=== PATIENT | female | born 1945 ===

== ENCOUNTER 2018-07-19 16:44 | Inpatient (IN) | payer MEDICAID, MEDICARE ==
--- NOTE | 2018-07-19 17:45 | ED PDOC ---
Arrival/HPI - General Chief Complaint: GI Problem Time Seen by Provider: 07/19/18 17:19 Historian: Patient, Family - History of Present Illness Narrative History of Present Illness (Text): 07/19/18 17:44 73 year old female, Vincentian speaking, whose past medical history includes hypertension, asthma, and has a pacemaker, presents to the emergency department complaining of rectal bleeding and fatigue, since yesterday. Patient states when she went to the bathroom for a bowel movement she found blood. Patient denies fevers, chills, headache, dizziness, chest pain, shortness of breath, dyspnea on exertion, cough, abdominal pain, nausea, vomiting, diarrhea, back pain, neck pain, or any other complaint. PMD: Dr. Bennett Prior chart shows hgb 9 with endoscopy and colonoscopy showing non-bleeding ulcer, diverticulosis and hemorrhoids from 2014. 07/19/18 20:39 Time/Duration: 24 hours Symptom Onset: Gradual Symptom Course: Unchanged Activities at Onset: Light Context: Home Past Medical History - Provider Review Nursing Documentation Reviewed: Yes - Cardiac Hx Hypertension: Yes Hx Pacemaker: Yes - Pulmonary Hx Asthma: Yes - Psychiatric Hx Substance Use: No - Surgical History Hx Dilation and Curettage: Yes (x1 ectopic ) - Anesthesia Hx Anesthesia: Yes Hx Anesthesia Reactions: No Hx Malignant Hyperthermia: No Family/Social History - Physician Review Nursing Documentation Reviewed: Yes Family/Social History: No Known Family HX Smoking Status: Never Smoked Hx Alcohol Use: No Hx Substance Use: No Allergies/Home Meds Allergies/Adverse Reactions: Allergies No Known Allergies Allergy (Verified 07/19/18 17:09) Review of Systems - Review of Systems Constitutional: Fatigue. absent: Fevers Eyes: absent: Vision Changes Respiratory: absent: SOB, Cough Cardiovascular: absent: Chest Pain Gastrointestinal: Other (rectal bleeding ). absent: Abdominal Pain, Diarrhea, Nausea, Vomiting Genitourinary Female: absent: Dysuria Musculoskeletal: absent: Back Pain, Neck Pain Skin: absent: Rash Neurological: absent: Headache, Dizziness Psychiatric: absent: Anxiety Physical Exam Vital Signs Reviewed: Yes Vital Signs Temp Pulse Resp BP Pulse Ox 07/19/18 16:44 98.4 F 88 18 126/89 95 Temperature: Afebrile Blood Pressure: Normal Pulse: Regular Respiratory Rate: Normal Appearance: Positive for: Well-Appearing, Non-Toxic, Comfortable Pain Distress: None Mental Status: Positive for: Alert and Oriented X 3 - Systems Exam Head: Present: Atraumatic, Normocephalic Pupils: Present: PERRL Extroacular Muscles: Present: EOMI Conjunctiva: Present: Normal Mouth: Present: Moist Mucous Membranes Neck: Present: Normal Range of Motion Respiratory/Chest: Present: Clear to Auscultation, Good Air Exchange, Other (pacemake noted ). No: Respiratory Distress, Accessory Muscle Use Cardiovascular: Present: Regular Rate and Rhythm, Normal S1, S2. No: Murmurs Abdomen: No: Tenderness, Distention, Peritoneal Signs Rectal: Present: Other (rectal exam done, no stool involved, female scribe present as instructor warper ) Back: Present: Normal Inspection Upper Extremity: Present: Normal Inspection. No: Cyanosis, Edema Lower Extremity: Present: Normal Inspection. No: Edema Neurological: Present: GCS=15, CN II-XII Intact, Speech Normal Skin: Present: Warm, Dry, Normal Color. No: Rashes Psychiatric: Present: Alert, Oriented x 3, Normal Insight, Normal Concentration Medical Decision Making ED Course and Treatment: 07/19/18 17:44 Impression: 73 year old female who presents to the emergency department complaining of rectal bleeding and fatigue. Plan: -- CT of Abdomen and Pelvis with IV contrast -- Labs -- Reassess and disposition Progress Notes: 07/19/18 18:24 EKG shows NSR at 85bpm with pacs. 07/19/18 20:[address] Scott, house physician, who accepts pt under the hospitalist service. 07/19/18 21:10 [facility] anemia and bright red blood per rectum 07/19/18 21:11 Spoke to resident who will follow-up CT read - Lab Interpretations I have reviewed the lab results: Yes - Scribe Statement The provider has reviewed the documentation as recorded by the Lindy Jules Provider Scribe Attestation: All medical record entries made by the Scribellen were at my direction and personally dictated by me. I have reviewed the chart and agree that the record accurately reflects my personal performance of the history, physical exam, medical decision making, and the department course for this patient. I have also personally directed, reviewed, and agree with the discharge instructions and disposition. Disposition/Present on Arrival - Present on Arrival Any Indicators Present on Arrival: No History of DVT/PE: No History of Uncontrolled Diabetes: No Urinary Catheter: No History of Decub. Ulcer: No History Surgical Site Infection Following: None - Disposition Have Diagnosis and Disposition been Completed?: Yes Diagnosis: Anemia Disposition: HOSPITALIZED Disposition Time: 21:10 Patient Plan: Observation Patient Problems: Current Active Problems Problem Status Onset Anemia Acute Condition: FAIR Forms: [employer] ([place])
[2018-07-19 18:15] LABS: BASO # 0.02 K/mm3 (0.0-2.0); BASO % 0.3 % (0.0-3.0); EOS # 0.2 (0.0-0.7); EOS % 3.3 % (1.5-5.0); GRAN # 4.04 (1.4-6.5); GRAN % 70.3 % (50.0-68.0); HEMOGLOBIN 9.4 g/dL (12.0-16.0); LYMPH # 1.2 (1.2-3.4); LYMPH % 20.2 % (22.0-35.0); MEAN CELL VOLUME 100.4 fl (80.0-105.0); MEAN CORPUSCULAR HGB CONC 32.9 g/dl (31.0-37.0); MEAN PLATELET VOLUME 10.3 fl (7.0-11.0); MONO # 0.3 (0.1-0.6); MONO % 5.9 % (1.0-6.0); RBC 2.85 10^6/uL (3.5-6.1); RED CELL DISTRIBUTION WIDTH 13.7 % (11.5-14.5); WHITE BLOOD COUNT 5.8 10^3/uL (4.5-11.0)
[2018-07-19 19:14] LABS: INR 1.04; PARTIAL THROMBOPLASTIN TIME 24.4 Seconds (25.1-36.5); PROTHROMBIN TIME 11.9 SECONDS (9.4-12.5)
[2018-07-19 19:18] LABS: ALBUMIN 3.2 g/dL (3.0-4.8); ALT/SGPT 20 U/L (7-56); AST/SGOT 27 U/L (14-36); BLOOD UREA NITROGEN 16 mg/dL (7-21); CALCIUM 8.8 mg/dL (8.4-10.5); GFR NON-AFRICAN AMERICAN > 60; LIPASE 46 U/L (23-300)
[2018-07-19] MEDS ORDERED: Iohexol 350 MG/100 ML VIAL ONE (19:49)
[2018-07-19] MEDS ORDERED: Sodium Chloride 0.9% 1,000 ML IV STA (20:53)
[2018-07-19] MEDS ORDERED: cefTRIAXone (Rocephin) 2 gm Inj IVPB STA (21:21)
[2018-07-19] MEDS ORDERED: metroNIDAZOLE IV 500 mg/100 ml 500 MG/100 ML BAG IVPB STA (21:21)
[2018-07-19] MEDS ORDERED: cefTRIAXone 1 GM/100 ML BAG IVPB STA (21:25)
[2018-07-19] MEDS ORDERED: Albuterol-Ipratrop 3 mg / 0.5 (3 ml) UD IH PRN (21:46)
--- NOTE | 2018-07-19 21:59 | CP.PCM.HP ---
<Eleazar Mcgill - Last Filed: 07/20/18 05:50> History of Present Illness - History of Present Illness History of Present Illness: Eleazar Mcgill, PGY 1 Hospital H&P This is a 73 year old Israeli speaking female with PMH of HLD, HTN, asthma, pacemaker, CAD, PUD and diverticulosis presenting to the ED for one day history of bright red in stool. Patient states she had a regular bowel movement on Tuesday night and found mild amount of bright red blood in the toilet and had similar findings the next morning as well after another bowel movement. She is also complaining of fatigue over the last few weeks and occasional epigastric pain but no pain at this time. Patient states she received pain medication and antibiotics from her dentist recently for molar pain but is unsure of the name. She denies CP, SOB, fevers, headaches, chills, nausea, vomiting, abdominal pain, back pain, urinary complaints, numbness, tingling, swelling, diarrhea, constipation, recent travel, sickness, trauma and lifestyle change. 12 point ROS noted here, otherwise unremarkable. PMD: [facility] PMH: HLD, HTN, asthma, pacemaker, CAD, PUD and diverticulosis SH: smoked for 6 years many years ago, denies drinking and drugs Sx: pacemkaer placement, ectopic many years ago FH: denies All: denies Meds: albuterol Present on Admission - Present on Admission Any Indicators Present on Admission: No Past Patient History - Past Social History Smoking Status: Former Smoker - CARDIAC Hx Hypertension: Yes Hx Pacemaker: Yes - PULMONARY Hx Asthma: Yes - PSYCHIATRIC Hx Substance Use: No - SURGICAL HISTORY Hx Dilation and Curettage: Yes (x1 ectopic ) - ANESTHESIA Hx Anesthesia: Yes Hx Anesthesia Reactions: No Hx Malignant Hyperthermia: No Meds Allergies/Adverse Reactions: Allergies Allergy/AdvReac Type Severity Reaction Status Date / Time No Known Allergies Allergy Verified 07/19/18 17:09 Physical Exam - Constitutional Appears: Non-toxic, No Acute Distress - Head Exam Head Exam: ATRAUMATIC, NORMAL INSPECTION - Eye Exam Eye Exam: EOMI Pupil Exam: PERRL - ENT Exam ENT Exam: Mucous Membranes Moist - Respiratory Exam Respiratory Exam: Clear to Auscultation Bilateral. absent: Accessory Muscle Use, Wheezes, Respiratory Distress - Cardiovascular Exam Cardiovascular Exam: REGULAR RHYTHM, +S1, +S2 - GI/Abdominal Exam GI & Abdominal Exam: Normal Bowel Sounds, Soft. absent: Distended, Firm, Guarding, Tenderness - Extremities Exam Extremities exam: Positive for: normal inspection, pedal pulses present. Negative for: calf tenderness - Back Exam Back exam: NORMAL INSPECTION - Neurological Exam Neurological exam: Alert, Oriented x3 - Skin Skin Exam: Normal Color, Warm Results - Vital Signs Recent Vital Signs: Last Vital Signs Temp 97.6 F 07/19/18 18:19 Pulse 75 07/19/18 19:31 Resp 18 07/19/18 19:31 BP 106/68 07/19/18 19:31 Pulse Ox 96 07/19/18 19:31 - Labs Result Diagrams: 07/19/18 18:00 07/19/18 18:50 Labs: Laboratory Results - last 24 hr 07/19/18 07/19/18 07/19/18 18:00 18:50 18:50 WBC 5.8 RBC 2.85 L Hgb 9.4 L Hct 28.6 L MCV 100.4 MCH 33.0 MCHC 32.9 RDW 13.7 Plt Count 331 MPV 10.3 Gran % 70.3 H Lymph % (Auto) 20.2 L [place] % (Auto) 5.9 Eos % (Auto) 3.3 Baso % (Auto) 0.3 Gran # 4.04 Lymph # (Auto) 1.2 [place] # (Auto) 0.3 Eos # (Auto) 0.2 Baso # (Auto) 0.02 PT 11.9 INR 1.04 APTT 24.4 L Sodium 143 Potassium 3.7 Chloride 112 H Carbon Dioxide 26 Anion Gap 9 L BUN 16 Creatinine 0.9 Est GFR ( Amer) > 60 Est GFR (Non-Af Amer) > 60 Random Glucose 77 Calcium 8.8 Total Bilirubin 0.5 AST 27 ALT 20 Alkaline Phosphatase 66 Total Protein 6.4 Albumin 3.2 Globulin 3.1 Albumin/Globulin Ratio 1.0 L Lipase 46 Assessment & Plan - Assessment and Plan (Free Text) Assessment: This is a 73 year old Israeli speaking female with PMH of HLD, HTN, asthma, pacemaker, CAD, PUD and diverticulosis presenting to the ED for one day history of bright red in stool. Plan: Diverticulitis -CTAP showed distal descending colon diverticulitis, f/u official read -WBC WNL, afebrile. Patient is currently asymptomatic -NPO -rocephin, flagyl -NS 100 -protonix 40mg IV BID -blood cx pending -Colonoscopy on 11/11/14 showed actively bleeding diverticulosis, internal hemorrhoids -GI on consult, Dr. Cadet Anemia -currently at baseline per chart review, borderline macrocytic -Iron, TIBC, folate, B12 pending -Repeat H/H pending -type and screen -FOBT negative in ED -EGD on 11/11/14 showed small hiatal hernia, 0.5cm x 1cm gastric ulcer Hx of asthma -duonebs prn Hx of HLD -lipid panel pending Hx of HTN -currently controlled -will monitor, per patient she does not take BP meds PPX with protonix and SCD NPO Patient seen and case discussed with attending, Dr. Scott <Benito Scott - Last Filed: 07/21/18 06:57> Results - Vital Signs Recent Vital Signs: Last Vital Signs Temp 97.6 F 07/21/18 06:00 Pulse 81 07/21/18 06:00 Resp 18 07/21/18 06:00 BP 105/51 L 07/21/18 06:00 Pulse Ox 98 07/21/18 06:00 - Labs Result Diagrams: 07/20/18 07:00 07/19/18 23:50 Labs: Laboratory Results - last 24 hr 07/20/18 07/20/18 07/20/18 07:00 07:00 07:00 WBC 4.1 L D RBC 2.58 L Hgb 8.3 L Hct 26.1 L MCV 101.2 MCH 32.2 MCHC 31.8 RDW 13.9 Plt Count 263 MPV 9.5 Gran % 55.6 Lymph % (Auto) 28.6 [place] % (Auto) 10.9 H Eos % (Auto) 4.4 Baso % (Auto) 0.5 Gran # 2.29 Lymph # (Auto) 1.2 [place] # (Auto) 0.5 Eos # (Auto) 0.2 Baso # (Auto) 0.02 Phosphorus 3.0 Magnesium 1.8 Iron 87 TIBC 225 L % Saturation 39 Triglycerides 149 Cholesterol 131 LDL Cholesterol Direct 71 HDL Cholesterol 43 Vitamin B12 791 Folate > 20.0 Blood Type Confirm 07/20/18 07:00 WBC RBC Hgb Hct MCV MCH MCHC RDW Plt Count MPV Gran % Lymph % (Auto) [place] % (Auto) Eos % (Auto) Baso % (Auto) Gran # Lymph # (Auto) [place] # (Auto) Eos # (Auto) Baso # (Auto) Phosphorus Magnesium Iron TIBC % Saturation Triglycerides Cholesterol LDL Cholesterol Direct HDL Cholesterol Vitamin B12 Folate Blood Type Confirm B POSITIVE Attending/Attestation - Attestation I have personally seen and examined this patient.: Yes I have fully participated in the care of the patient.: Yes I have reviewed all pertinent clinical information: Yes
[2018-07-19] MEDS ORDERED: Sodium Chloride 0.9% 1,000 ML IV SCH (22:00)
[2018-07-19] MEDS ORDERED: metroNIDAZOLE IV 500 mg/100 ml 500 MG/100 ML BAG IVPB SCH (22:00)
[2018-07-20 00:16] LABS: HEMOGLOBIN 8.9 g/dL (12.0-16.0)
[2018-07-20 00:33] LABS: ALB/GLOB RATIO 0.9 (1.1-1.8); ALBUMIN 2.6 g/dL (3.0-4.8); ALT/SGPT 26 U/L (7-56); AST/SGOT 26 U/L (14-36); BLOOD UREA NITROGEN 13 mg/dL (7-21); CALCIUM 7.8 mg/dL (8.4-10.5); GFR NON-AFRICAN AMERICAN > 60
[2018-07-20] MEDS ORDERED: metroNIDAZOLE IV 500 mg/100 ml 500 MG/100 ML BAG IVPB SCH (06:00)
[2018-07-20 07:21] LABS: BASO # 0.02 K/mm3 (0.0-2.0); BASO % 0.5 % (0.0-3.0); EOS # 0.2 (0.0-0.7); EOS % 4.4 % (1.5-5.0); GRAN # 2.29 (1.4-6.5); GRAN % 55.6 % (50.0-68.0); HEMOGLOBIN 8.3 g/dL (12.0-16.0); LYMPH # 1.2 (1.2-3.4); LYMPH % 28.6 % (22.0-35.0); MEAN CELL VOLUME 101.2 fl (80.0-105.0); MEAN CORPUSCULAR HEMOGLOBIN 32.2 pg (25.0-35.0); MEAN CORPUSCULAR HGB CONC 31.8 g/dl (31.0-37.0); MEAN PLATELET VOLUME 9.5 fl (7.0-11.0); MONO # 0.5 (0.1-0.6); MONO % 10.9 % (1.0-6.0); RBC 2.58 10^6/uL (3.5-6.1); RED CELL DISTRIBUTION WIDTH 13.9 % (11.5-14.5); WHITE BLOOD COUNT 4.1 10^3/uL (4.5-11.0)
[2018-07-20 07:25] LABS: HDL CHOLESTEROL 43 mg/dL (29-60); IRON 87 ug/dL (45-180)
[2018-07-20 07:34] LABS: % IRON SATURATION 39 % (20-55); TOTAL IRON BINDING CAPACITY 225 ug/dL (265-497)
[2018-07-20 07:36] LABS: LDL CHOLESTEROL 71 mg/dL (0-129)
[2018-07-20] MEDS ORDERED: Sodium Chloride 0.9% 1,000 ML IV SCH (08:47)
--- NOTE | 2018-07-20 09:20 | CON ---
DATE: 07/20/2018 HISTORY OF PRESENT ILLNESS: I saw Mrs. Rafita Anderson this morning. She is a 73-year-old female. PAST MEDICAL HISTORY: Her past medical history includes hypertension, asthma, pacemaker, gastric ulcer, diverticulosis and hemorrhoids. The patient apparently was admitted with complaints of rectal bleeding and fatigue, few separate episodes of 2 days. The patient denies any hematemesis or nausea, vomiting or abdominal pain. Apparently, the patient had an endoscopy and a colonoscopy done in 2014, which showed an ulcer, diverticulosis and hemorrhoids. When asked about straining with bowel movements, the patient could not recall. Numerous questions were inquired of the patient at the bedside with one of the telemetry nurses. PHYSICAL EXAMINATION: VITAL SIGNS: Reviewed to this patient. HEENT: Noncontributory. LUNGS: Decreased breath sounds, basilar. HEART: Irregular rhythm. ABDOMEN: Soft. No tenderness elicited anywhere either in the epigastric, periumbilical or lower quadrant either right or left. LABORATORY DATA: I reviewed this patient's laboratory data which consists of initial H and H , normal INR, comp metabolic significant for hypokalemia, normal biliary parameters, alk phos 61. Note that initial H and H platelet count of 331, decreased slightly probably on delusional aspects. The patient had an abdominal and pelvic CT done which is currently uninterpreted. The CT showed homogeneous liver texture, mildly sequel stomach. There is stool on the proximal colon. Diverticula were noted throughout the area of the descending colon as well as the sigmoid. Further clarification of the CT will be done by Radiology later on this morning. OVERALL ASSESSMENT: This is a 73-year-old female with complaints of painless rectal bleeding. At the current time point, the patient is on ceftriaxone and metronidazole, also PPI. We will continue her on the same. I raised the question with the patient by one of the nurse interpreters of possible colonoscopy procedure and after thoroughly understanding the discussion, the patient preferred to have any procedures performed on an outpatient basis. At the current time point, we would maintain her antibiotic therapy and advance her diet with clear liquids. The patient will be followed up by house staff later on this morning. Vinay Cadet DO, PhD BONNIE
--- NOTE | 2018-07-20 09:31 | CARD ---
APPROVED REPORT Date of service: 07/19/2018 EKG Measurement Heart [id number] <Conclusion> Sinus rhythm with premature atrial complexes Inferior infarct, age undetermined Abnormal ECG
--- NOTE | 2018-07-20 09:44 | CT ---
Date of service: 07/19/2018 PROCEDURE: CT Abdomen and Pelvis with contrast HISTORY: bright red blood per rectum COMPARISON: None. TECHNIQUE: Contrast dose: 100 cc of Omni 350 Radiation dose: Total exam DLP = 268.19 mGy-cm. This CT exam was performed using one or more of the following dose reduction techniques: Automated exposure control, adjustment of the mA and/or kV according to patient size, and/or use of iterative reconstruction technique. FINDINGS: LOWER THORAX: Unremarkable. LIVER: Unremarkable. No gross lesion or ductal dilatation. GALLBLADDER AND BILE DUCTS: Unremarkable. PANCREAS: Unremarkable. No gross lesion or ductal dilatation. SPLEEN: Unremarkable. ADRENALS: Unremarkable. No mass. KIDNEYS AND URETERS: Unremarkable. No hydronephrosis. No solid mass. VASCULATURE: Unremarkable. No aortic aneurysm. Aortic calcifications are seen. BOWEL: There is diverticulosis of the descending and sigmoid colon. Minimal inflammatory changes are seen around the descending colon consistent with mild diverticulitis. There is moderate constipation APPENDIX: Normal appendix. PERITONEUM: There is a small amount of free fluid in the pelvis. LYMPH NODES: Unremarkable. No enlarged lymph nodes. BLADDER: Unremarkable. REPRODUCTIVE: Unremarkable. BONES: No acute fracture. OTHER FINDINGS: The report concurs with the preliminary [facility] report IMPRESSION: There is diverticulosis of the descending and sigmoid colon. Minimal inflammatory changes are seen around the descending colon consistent with mild diverticulitis.
[2018-07-20] MEDS ORDERED: cefTRIAXone 1 gm 1 GM/100 ML BAG IVPB SCH (10:00)
[2018-07-20 13:13] LABS: FOLATE > 20.0 ng/mL
[2018-07-21 06:58] LABS: BLOOD UREA NITROGEN 11 mg/dL (7-21); CALCIUM 7.9 mg/dL (8.4-10.5); GFR NON-AFRICAN AMERICAN > 60
[2018-07-21 07:39] LABS: BASO # 0.02 K/mm3 (0.0-2.0); BASO % 0.4 % (0.0-3.0); EOS # 0.2 (0.0-0.7); EOS % 3.7 % (1.5-5.0); GRAN % 65.9 % (50.0-68.0); HEMOGLOBIN 7.3 g/dL (12.0-16.0); LYMPH # 0.9 (1.2-3.4); LYMPH % 20.6 % (22.0-35.0); MEAN CELL VOLUME 102.7 fl (80.0-105.0); MEAN CORPUSCULAR HEMOGLOBIN 33.2 pg (25.0-35.0); MEAN CORPUSCULAR HGB CONC 32.3 g/dl (31.0-37.0); MEAN PLATELET VOLUME 9.8 fl (7.0-11.0); MONO # 0.4 (0.1-0.6); MONO % 9.4 % (1.0-6.0); RBC 2.2 10^6/uL (3.5-6.1); RED CELL DISTRIBUTION WIDTH 13.9 % (11.5-14.5); WHITE BLOOD COUNT 4.6 10^3/uL (4.5-11.0)
--- NOTE | 2018-07-21 12:20 | PN ---
DATE: 07/21/2018 SUBJECTIVE: I saw Ms. Rafita Anderson this morning. She is a 73-year-old female admitted to the hospital with complaints of few separate episodes of rectal bleeding prior to coming into the hospital. Yesterday, discussed the possibility of endoscopic evaluation; however, the patient deferred to have this done as an outpatient. The patient was initiated on antibiotic therapy yesterday, which included Cipro as well as metronidazole. I reviewed the patient's clinical situation with the nurse on the floor. The patient denies any hematemesis, rectal bleeding, nausea, vomiting, abdominal pain. She appears to be handling her liquid diet without a problem. PHYSICAL EXAMINATION: VITAL SIGNS: I reviewed this patient's vital signs. HEENT: Noncontributory. LUNGS: Decreased breath sounds at bases. HEART: Irregular rhythm. ABDOMEN: Soft. No tenderness elicited, not distended. LABORATORY DATA: Reviewed the patient's ____, which includes a negative blood culture. Laboratory data indicates last H and H as of yesterday morning , that is pending for today. She has a low total iron binding capacity. Iron level is 87. Percent saturation 39. PRBC level is 225. ASSESSMENT AND PLAN: This is a 73-year-old female with complaints of two episodes of rectal bleeding, not currently bleeding in the hospital or experiencing any symptoms of abdominal pain, nausea, or vomiting either. The patient currently is doing well on antibiotic therapy. We will consider advancing diet through either full liquids or possibly very small portions of soft residue and continue the antibiotic therapy for a total of roughly 9 to 10 days. Differential diagnosis in this case includes either hemorrhoid bleeding or rectal mucosal tear or painless diverticular bleed. Again, when the patient is discharged, we will continue the antibiotic therapy in the form of Cipro or Flagyl for roughly about another 10 days and the patient must be followed by an outpatient senior technical support analyst to perform a updated colonoscopy within a short timeframe. Note that as indicated above, the procedure was discussed with the patient, but she deferred. We will sign off the case today. The patient will be followed up by house staff later on this morning. Vinay Cadet DO PhD MTDD
--- NOTE | 2018-07-21 13:18 | CP.PCM.PN ---
<Cora Marsh - Last Filed: 07/21/18 15:16> Subjective - Date & Time of Evaluation Date of Evaluation: 07/21/18 Time of Evaluation: 07:55 - Subjective Subjective: Internal medicine progress note for Dr. Russ Patient seen and examined this am at bedside. Overnight the patient had a single BM with clots. Patient endorses another bloody BM this morning after bloodwork was taken. She does endorse dizziness with standing. She continues to endorse jaw/molar pain but states that he tylenol has helped. Patient denies any JEROME, n/v, f/c, CP, SOB, abdominal pain, dysuria and extremity pain/weakness Objective - Vital Signs/Intake and Output Vital Signs (last 24 hours): Temp Pulse Resp BP Pulse Ox 98.7 F 93 H 19 113/90 98 07/21/18 12:00 07/21/18 12:00 07/21/18 12:00 07/21/18 12:00 07/21/18 06:00 Intake and Output: 07/21/18 07/21/18 06:59 18:59 Intake Total 120 Output Total 350 Balance -230 - Medications Medications: Current Medications Acetaminophen (Tylenol 325mg Tab) 650 mg PO Q6H PRN PRN Reason: Pain, severe (8-10) Albuterol/Ipratropium (Duoneb 3 Mg/0.5 Mg (3 Ml) Ud) 3 ml IH Q2H PRN PRN Reason: Shortness of Breath Last Admin: 07/20/18 18:05 Dose: 3 ml Ciprofloxacin (Cipro) 500 mg PO Q12 FADY; Protocol Stop: 07/21/18 13:20 Last Admin: 07/21/18 10:05 Dose: 500 mg Metronidazole (Flagyl) 500 mg PO Q8 FADY; Protocol Last Admin: 07/21/18 05:29 Dose: 500 mg Pantoprazole Sodium (Protonix Inj) 40 mg IVP Q12 FADY Last Admin: 07/21/18 10:05 Dose: 40 mg - Labs Labs: 07/21/18 06:00 07/21/18 06:00 PT 11.9 SECONDS (9.4-12.5) 07/19/18 18:50 INR 1.04 07/19/18 18:50 APTT 24.4 Seconds (25.1-36.5) L 07/19/18 18:50 - Constitutional Appears: Well, Non-toxic, No Acute Distress - Eye Exam Eye Exam: EOMI - ENT Exam ENT Exam: Mucous Membranes Moist - Respiratory Exam Respiratory Exam: Clear to Ausculation Bilateral, NORMAL BREATHING PATTERN - Cardiovascular Exam Cardiovascular Exam: REGULAR RHYTHM - GI/Abdominal Exam GI & Abdominal Exam: Soft. absent: Distended, Firm, Guarding, Tenderness - Extremities Exam Extremities Exam: absent: Calf Tenderness, Pedal Edema - Neurological Exam Neurological Exam: Alert, Awake, Oriented x3 - Psychiatric Exam Psychiatric exam: Normal Affect, Normal Mood - Skin Skin Exam: Dry, Intact, Normal Color, Warm Assessment and Plan - Assessment and Plan (Free Text) Assessment: 73 yr old female with GI bleed 2/2 diverticulitis Plan: Diverticulitis -c/w PO cipro, flagyl -protonix 40mg IV BID -blood cx neg x 24hrs -Colonoscopy on 11/11/14 showed actively bleeding diverticulosis, internal hemorrhoids -GI on consult, Dr. Cadet, made aware of hgb drop Anemia - continued bloody BM - will transfuse 1 u PRBC today d/t hbg decrease (7.3), consent obtained via hosiery repairer - CBC Q12 - will continue to monitor - transfuse for hgb <7 - B12 folate and Iron WNL, anemia likely 2/2 acute blood loss Hx of asthma -duonebs prn Hx of HLD -lipid panel WNL Hx of HTN - will hold all home BP meds in setting of hypotension/ normotension PPX with protonix and SCD NPO <Fernando Russ - Last Filed: 07/21/18 17:26> Objective - Vital Signs/Intake and Output Vital Signs (last 24 hours): Temp Pulse Resp BP Pulse Ox 98.7 F 93 H 19 113/90 98 07/21/18 12:00 07/21/18 14:00 07/21/18 12:00 07/21/18 12:00 07/21/18 06:00 Intake and Output: 07/21/18 07/21/18 06:59 18:59 Intake Total 120 Output Total 350 Balance -230 - Medications Medications: Current Medications Acetaminophen (Tylenol 325mg Tab) 650 mg PO Q6H PRN PRN Reason: Pain, severe (8-10) Albuterol/Ipratropium (Duoneb 3 Mg/0.5 Mg (3 Ml) Ud) 3 ml IH Q2H PRN PRN Reason: Shortness of Breath Last Admin: 07/20/18 18:05 Dose: 3 ml Atorvastatin Calcium (Lipitor) 20 mg PO DIN FADY Ciprofloxacin (Cipro) 500 mg PO Q12 FADY; Protocol Stop: 07/22/18 15:18 Metronidazole (Flagyl) 500 mg PO Q8 FADY; Protocol Last Admin: 07/21/18 14:59 Dose: 500 mg Oxybutynin Chloride (Ditropan Tab) 5 mg PO DAILY FADY Pantoprazole Sodium (Protonix Inj) 40 mg IVP Q12 FADY Last Admin: 07/21/18 10:05 Dose: 40 mg - Labs Labs: 07/21/18 15:30 07/21/18 06:00 PT 11.9 SECONDS (9.4-12.5) 07/19/18 18:50 INR 1.04 07/19/18 18:50 APTT 24.4 Seconds (25.1-36.5) L 07/19/18 18:50 Attending/Attestation - Attestation I have personally seen and examined this patient.: Yes I have fully participated in the care of the patient.: Yes I have reviewed all pertinent clinical information, including history, physical exam and plan: Yes Notes (Text): Acute blood loss anemia GI bleed Diverticulosis Pt continues to have dark clots in BM. Hgb now down to 7.4. Will transfuse 1u PRBC. Monitor CBC Q12 GI has been informed about the worsening bleeds and drop in Hgb c/w Cipro and flagyl 07/21/18 17:22
[2018-07-21 16:06] LABS: MEAN CELL VOLUME 101.8 fl (80.0-105.0); MEAN CORPUSCULAR HEMOGLOBIN 32.3 pg (25.0-35.0); MEAN CORPUSCULAR HGB CONC 31.7 g/dl (31.0-37.0); MEAN PLATELET VOLUME 9.5 fl (7.0-11.0); RBC 2.17 10^6/uL (3.5-6.1); WHITE BLOOD COUNT 6.1 10^3/uL (4.5-11.0)
[2018-07-21] MEDS ORDERED: Ciprofloxacin 400mg/200ml D5W 400 MG/200 ML BAG IVPB SCH (22:00)
[2018-07-22] MEDS: metroNIDAZOLE IV 500 mg/100 ml 500 MG/100 ML BAG IVPB SCH ×4 (00:13→21:13)
[2018-07-22 01:46] LABS: HEMOGLOBIN 8.2 g/dL (12.0-16.0); MEAN CELL VOLUME 98.5 fl (80.0-105.0); MEAN CORPUSCULAR HEMOGLOBIN 31.1 pg (25.0-35.0); MEAN CORPUSCULAR HGB CONC 31.5 g/dl (31.0-37.0); MEAN PLATELET VOLUME 9.7 fl (7.0-11.0); RBC 2.64 10^6/uL (3.5-6.1); RED CELL DISTRIBUTION WIDTH 16.1 % (11.5-14.5); WHITE BLOOD COUNT 5.9 10^3/uL (4.5-11.0)
[2018-07-22 08:35] LABS: BASO # 0.01 K/mm3 (0.0-2.0); BASO % 0.2 % (0.0-3.0); EOS # 0.2 (0.0-0.7); EOS % 3.7 % (1.5-5.0); GRAN # 3.54 (1.4-6.5); LYMPH # 1.2 (1.2-3.4); LYMPH % 22.8 % (22.0-35.0); MEAN CELL VOLUME 98.1 fl (80.0-105.0); MEAN CORPUSCULAR HGB CONC 31.6 g/dl (31.0-37.0); MEAN PLATELET VOLUME 9.8 fl (7.0-11.0); MONO # 0.5 (0.1-0.6); MONO % 8.3 % (1.0-6.0); RBC 2.58 10^6/uL (3.5-6.1); RED CELL DISTRIBUTION WIDTH 17.2 % (11.5-14.5); WHITE BLOOD COUNT 5.4 10^3/uL (4.5-11.0)
[2018-07-22 09:02] LABS: BLOOD UREA NITROGEN 9 mg/dL (7-21); GFR NON-AFRICAN AMERICAN > 60
[2018-07-22 12:53] LABS: HEMOGLOBIN 7.7 g/dL (12.0-16.0); MEAN CELL VOLUME 97.6 fl (80.0-105.0); MEAN CORPUSCULAR HEMOGLOBIN 31.4 pg (25.0-35.0); MEAN CORPUSCULAR HGB CONC 32.2 g/dl (31.0-37.0); MEAN PLATELET VOLUME 9.1 fl (7.0-11.0); RBC 2.45 10^6/uL (3.5-6.1); RED CELL DISTRIBUTION WIDTH 17.3 % (11.5-14.5); WHITE BLOOD COUNT 6.4 10^3/uL (4.5-11.0)
--- NOTE | 2018-07-22 13:43 | CP.PCM.PN ---
<Scotty Mora - Last Filed: 07/22/18 14:52> Subjective - Date & Time of Evaluation Date of Evaluation: 07/22/18 Time of Evaluation: 10:00 - Subjective Subjective: Scotty Mora PGY-1 Medicine Progress Note for Dr. Tobias Ordoñez: Pt was seen and examined this morning at bedside. Overnight the pt was transfused 1 unit PRBC. H&H this AM was noted to respond appropriately and did not have any reactions during the transfusion. Per nursing she was noted to have a bloody BM this AM as well, will continue to monitor H&H. Pt also states that she is having some dizziness while standing, otherwise she is denying any chest pain, palpitations, sob, cough, nausea, vomiting, abd pain, dysuria, hematuria, or frequency. Objective - Vital Signs/Intake and Output Vital Signs (last 24 hours): Temp Pulse Resp BP Pulse Ox 97.8 F 77 18 111/65 100 07/22/18 06:00 07/22/18 06:00 07/22/18 06:00 07/22/18 06:00 07/22/18 06:00 Intake and Output: 07/22/18 07/22/18 06:59 18:59 Intake Total 1440 Output Total 200 Balance 1240 - Medications Medications: Current Medications Albuterol/Ipratropium (Duoneb 3 Mg/0.5 Mg (3 Ml) Ud) 3 ml IH Q2H PRN PRN Reason: Shortness of Breath Last Admin: 07/20/18 18:05 Dose: 3 ml Metronidazole (Flagyl) 500 mg in 100 mls @ 100 mls/hr IVPB Q8 [facility]ADY; Protocol Last Admin: 07/22/18 06:46 Dose: 100 mls/hr Pantoprazole Sodium (Protonix Inj) 40 mg IVP Q12 [facility]ADY Last Admin: 07/22/18 09:41 Dose: 40 mg - Labs Labs: 07/22/18 12:47 07/22/18 08:15 PT 11.9 SECONDS (9.4-12.5) 07/19/18 18:50 INR 1.04 07/19/18 18:50 APTT 24.4 Seconds (25.1-36.5) L 07/19/18 18:50 - Constitutional Appears: Non-toxic, No Acute Distress - Head Exam Head Exam: ATRAUMATIC, NORMAL INSPECTION, NORMOCEPHALIC - Eye Exam Eye Exam: EOMI, Normal appearance, PERRL - Respiratory Exam Respiratory Exam: Clear to Ausculation Bilateral, NORMAL BREATHING PATTERN. absent: Accessory Muscle Use, Decreased Breath Sounds, Rales, Rhonchi, Wheezes, Respiratory Distress, Stridor - Cardiovascular Exam Cardiovascular Exam: RRR, +S1, +S2. absent: Gallop, Rubs - GI/Abdominal Exam GI & Abdominal Exam: Soft, Normal Bowel Sounds. absent: Guarding, Rigid, Tenderness - Extremities Exam Extremities Exam: absent: Calf Tenderness, Pedal Edema, Tenderness - Back Exam Back Exam: NORMAL INSPECTION. absent: CVA tenderness (L), CVA tenderness (R) - Neurological Exam Neurological Exam: Alert, Awake, Oriented x3 - Psychiatric Exam Psychiatric exam: Normal Affect, Normal Mood - Skin Skin Exam: Dry, Normal Color, Warm Assessment and Plan - Assessment and Plan (Free Text) Assessment: Pt is a 73 year old Wallisian speaking female with PMH of HLD, HTN, asthma, pacemaker, CAD, PUD and diverticulosis presenting to the ED for one day history of bright red in stool. Pt transfused this AM, responded appropriately with morning CBC, but then had bloody BM and dropped again to 7.7. Pt transfused again 1 unit PRBC. Plan: Diverticulitis - c/w IV cipro, PO flagyl - protonix 40mg IV BID - blood cx neg x 48 hrs - Colonoscopy on 11/11/14 showed actively bleeding diverticulosis, internal hemorrhoids - GI on consult, Dr. Cadet, made aware of hgb drop and transfusion Anemia - continued bloody BM - Pt transfused 1 unit PRBC in AMl, f/u CBC showed appropriate response, but repeat CBC showed another drop (7.7), given hx of CAD will transfuse 1 unit PRBC now - CBC Q12 - will continue to monitor - GI made aware of plan to transfuse Hx of asthma -duonebs prn Hx of HLD -lipid panel WNL Hx of HTN - will hold all home BP meds in setting of hypotension/ normotension PPX: GI: protonix DVT: SCD Liquid Diet Case discussed with Dr. Tobias Mora DO Internal Medicine PGY-1 <Daiana Ordoñez R - Last Filed: 07/22/18 16:54> Objective - Vital Signs/Intake and Output Vital Signs (last 24 hours): Temp Pulse Resp BP Pulse Ox 97.4 F L 90 16 101/53 L 100 07/22/18 14:12 07/22/18 14:12 07/22/18 14:12 07/22/18 14:12 07/22/18 06:00 Intake and Output: 07/22/18 07/22/18 06:59 18:59 Intake Total 1440 0 Output Total 200 Balance 1240 0 - Medications Medications: Current Medications Albuterol/Ipratropium (Duoneb 3 Mg/0.5 Mg (3 Ml) Ud) 3 ml IH Q2H PRN PRN Reason: Shortness of Breath Last Admin: 07/20/18 18:05 Dose: 3 ml Atorvastatin Calcium (Lipitor) 20 mg PO DIN [facility] Metronidazole (Flagyl) 500 mg in 100 mls @ 100 mls/hr IVPB Q8 [facility]ADY; Protocol Last Admin: 07/22/18 14:05 Dose: 100 mls/hr Ciprofloxacin (Cipro 200mg/100ml D5w) 100 mls @ 67 mls/hr IVPB Q12 [facility]ADY; Pr otocol Stop: 07/22/18 23:30 Oxybutynin Chloride (Ditropan Tab) 5 mg PO DAILY [facility] Pantoprazole Sodium (Protonix Inj) 40 mg IVP Q12 [facility]ADY Last Admin: 07/22/18 09:41 Dose: 40 mg - Labs Labs: 07/22/18 12:47 07/22/18 08:15 PT 11.9 SECONDS (9.4-12.5) 07/19/18 18:50 INR 1.04 07/19/18 18:50 APTT 24.4 Seconds (25.1-36.5) L 07/19/18 18:50 Attending/Attestation - Attestation I have personally seen and examined this patient.: Yes I have fully participated in the care of the patient.: Yes I have reviewed all pertinent clinical information, including history, physical exam and plan: Yes Notes (Text): Patient seen and examined by me with resident at 8:45 AM on 07/22/18. Case including HPI, physical exam, and assessment and plan discussed with resident. Agree with above with following additions/corrections. Patient is a 73-year-old Wallisian-speaking female with past medical history significant for hyperlipidemia, hypertension, asthma, pacemaker, coronary artery disease, peptic ulcer disease, and diverticulosis of presented to the emergency room with bright red blood per rectum. solar sales consultant used for translation. Patient states she is feeling ok. Patient states she is upset that she is still have bright red blood per rectum. Last bloody bowel movement was this morning. Patient also complains of loss of appetite. No nausea, vomiting, or abdominal pain. Patient states she feels a litte dizzy and short of breath when she walks to the bathroom. No fevers or chills. No headaches or lightheadedness. No chest pain or palpitations. No dysuria. Physical exam: General: Awake and alert lying in bed in no acute distress HEENT: Normocephalic, atraumatic. Extraocular muscles intact, pupils equal and reactive, no scleral icterus. Oropharynx is pink and moist. Neck is supple. Cardiovascular: Regular rhythm. Normal S1 and S2. No murmurs, rubs, or gallops appreciated Pulmonary: Normal respiratory effort. No rhonchi, rales, or wheezing appreciated. Gastrointestinal: Soft, nondistended. Nontender. Positive bowel sounds all 4 quadrants. No guarding. Musculoskeletal: Moves all extremities. No calf tenderness. No edema appreciated Central nervous system: AAOx3 Dermatologic: Skin warm and dry. Assessment and plan: Patient is a 73-year-old Wallisian-speaking female with past medical history significant for hyperlipidemia, hypertension, asthma, pacemaker, coronary artery disease, peptic ulcer disease, and diverticulosis of presented to the emergency room with bright red blood per rectum. 1. Diverticulitis. Rectal bleeding. CT abd/pelvis per radiologist showed diverticulosis of the descending and sigmoid colon; minimal inflammatory changes are seen around the descending colon consistent with mild diverticulitis. Continue Cipro and Flagyl. GI following, recommendations appreciated. Continue clear liquid diet. 2. Anemia secondary to acute blood loss from rectal bleeding. Status post 1 unit packed red blood cells. Hemoglobin downtrending again. Patient being transfused another unit of packed red blood cells. Follow-up with GI for further recommendations. 3. Coronary artery disease. No current issues. Patient chest pain free. Home enalapril held secondary to lower blood pressure likely secondary to bleeding. Continue home Lipitor. 4. Essential hypertension. Home enalapril and hydralazine held for now secondary to lower blood pressure likely secondary to anemia and bleeding. 5. Hyperlipidemia. Continue home Lipitor. 6. History of asthma. Likely mild intermitted. Not in acute exacerbation. Not on home medications. Continue nebulizer treatments as needed. 7. GI prophylaxis. Protonix. 8. DVT prophylaxis. SCDs. 9. Patient is a full code Case was discussed in detail with the patient regarding current diagnosis and treatment plan. All questions answered.
[2018-07-22] MEDS ORDERED: Ciprofloxacin 200mg/100ml D5W 100 ML IVPB SCH (22:00)
[2018-07-23] MEDS: Piperacillin/Tazobact 3.375 gm 100 ML IVPB SCH ×5 (01:08→21:02)
[2018-07-23 01:51] LABS: HEMOGLOBIN 8.6 g/dL (12.0-16.0); MEAN CELL VOLUME 94.6 fl (80.0-105.0); MEAN CORPUSCULAR HEMOGLOBIN 30.8 pg (25.0-35.0); MEAN CORPUSCULAR HGB CONC 32.6 g/dl (31.0-37.0); MEAN PLATELET VOLUME 9.5 fl (7.0-11.0); RBC 2.79 10^6/uL (3.5-6.1); RED CELL DISTRIBUTION WIDTH 18.5 % (11.5-14.5); WHITE BLOOD COUNT 5.7 10^3/uL (4.5-11.0)
[2018-07-23] MEDS: metroNIDAZOLE IV 500 mg/100 ml 500 MG/100 ML BAG IVPB SCH ×5 (04:09→21:02)
[2018-07-23 07:35] LABS: BASO # 0.02 K/mm3 (0.0-2.0); BASO % 0.3 % (0.0-3.0); EOS # 0.3 (0.0-0.7); EOS % 3.8 % (1.5-5.0); GRAN # 4.73 (1.4-6.5); GRAN % 64.7 % (50.0-68.0); HEMOGLOBIN 9.7 g/dL (12.0-16.0); LYMPH # 1.8 (1.2-3.4); LYMPH % 24.4 % (22.0-35.0); MEAN CELL VOLUME 95.3 fl (80.0-105.0); MEAN CORPUSCULAR HEMOGLOBIN 30.2 pg (25.0-35.0); MEAN CORPUSCULAR HGB CONC 31.7 g/dl (31.0-37.0); MEAN PLATELET VOLUME 9.7 fl (7.0-11.0); MONO # 0.5 (0.1-0.6); MONO % 6.8 % (1.0-6.0); RBC 3.21 10^6/uL (3.5-6.1); RED CELL DISTRIBUTION WIDTH 18.6 % (11.5-14.5); WHITE BLOOD COUNT 7.3 10^3/uL (4.5-11.0)
[2018-07-23 08:23] LABS: BLOOD UREA NITROGEN 6 mg/dL (7-21); CALCIUM 8.4 mg/dL (8.4-10.5); GFR NON-AFRICAN AMERICAN > 60
[2018-07-23] MEDS ORDERED: Peg-Electrolyte Oral Soln 4L (Golytely) PO ONE (10:00)
--- NOTE | 2018-07-23 12:16 | PN ---
DATE: 07/23/2018 SUBJECTIVE: I saw Mrs. Rafita Anderson this morning. She is a 73-year-old female, admitted with complaints of painless rectal bleeding and has now had several episodes since admission. The patient was transfused several times with 1 unit. I reviewed the patient's clinical scenario with the house staff on several occasions. H and H as of 1:30 this morning 8.6/26.4 with platelet count of 238. I reviewed the remainder of the patient's labs. At bedside this morning, the patient indicates no shortness of breath or chest pain. No abdominal pain. I reviewed the clinical course with the nurse on telemetry. PHYSICAL EXAMINATION: VITAL SIGNS: I reviewed the patient's vital signs. HEENT: Noncontributory. LUNGS: Decreased breath sounds at bases. HEART: Irregular rhythm. ABDOMEN: Soft. Not distended. No tenderness anywhere, LABORATORY DATA: Again, the laboratory data reviewed above and previously. Note that she has had a CT scan which indicates diverticulosis with no abscess. Sufficient amount of stool. ASSESSMENT: This is a 73-year-old female with painless rectal bleeding. The patient has not had abdominal pain at home or in hospital. PLAN: Due to continued bleeding issues, plan will be for most likely a limited colonoscopy procedure yesterday which is requested at the request of the house staff due of the patient's recurrent bleeding. Most likely, given the current scenario, this could most likely be a diverticular bleed or possibly a tumor in the distal colon. I reviewed the issue of procedure, most likely limited, The patient was agreeable to the procedure. She is currently scheduled for tomorrow at 11:30. The patient will be on a liquid colon prep today with a clear liquid diet. Vinay Cadet DO, PhD BONNIE
--- NOTE | 2018-07-23 13:13 | CP.PCM.PN ---
<Scotty Mora - Last Filed: 07/23/18 14:23> Subjective - Date & Time of Evaluation Date of Evaluation: 07/23/18 Time of Evaluation: 12:48 - Subjective Subjective: Scotty Mora PGY-1 Medicine Progress Note for Dr. Tobias Ordoñez: Pt was seen and examined this AM at bedside. She was transfused a second unit PRBCs in the afternoon yesterday and had responded appropriately. Per pt she had a bloody BM this AM. Colonoscopy was discussed with pt using pleating machine operator ID#[id number], which she had agreed to. GI is on board and has started pt on prep and the pt is on the schedule for scope tomorrow. Pt is currently denying chest pain, SOB, cough, fevers, chills, abd pain, n/v. She states that she is frustrated that her BMs continue to be bloody. She has no other acute complaints at this time. Objective - Vital Signs/Intake and Output Vital Signs (last 24 hours): Temp Pulse Resp BP Pulse Ox 98.3 F 87 18 122/53 L 99 07/23/18 12:00 07/23/18 12:00 07/23/18 12:00 07/23/18 12:00 07/23/18 06:00 Intake and Output: 07/23/18 07/23/18 06:59 18:59 Intake Total 980 Output Total 2 Balance 978 - Medications Medications: Current Medications Albuterol/Ipratropium (Duoneb 3 Mg/0.5 Mg (3 Ml) Ud) 3 ml IH Q2H PRN PRN Reason: Shortness of Breath Last Admin: 07/20/18 18:05 Dose: 3 ml Atorvastatin Calcium (Lipitor) 20 mg PO DIN FADY Last Admin: 07/22/18 18:26 Dose: 20 mg Metronidazole (Flagyl) 500 mg in 100 mls @ 100 mls/hr IVPB Q8 [facility]ADY; Protocol Last Admin: 07/23/18 04:09 Dose: 100 mls/hr Piperacillin Sod/Tazobactam Sod (Zosyn 3.375 In Ns 100ml) 100 mls @ 25 mls/hr IVPB Q8 [facility]ADY; Protocol Stop: 07/31/18 23:57 Last Admin: 07/23/18 05:54 Dose: 25 mls/hr Oxybutynin Chloride (Ditropan Tab) 5 mg PO DAILY [facility] Pantoprazole Sodium (Protonix Inj) 40 mg IVP Q12 FADY Last Admin: 07/23/18 09:53 Dose: 40 mg - Labs Labs: 07/23/18 06:30 07/23/18 06:30 PT 11.9 SECONDS (9.4-12.5) 07/19/18 18:50 INR 1.04 07/19/18 18:50 APTT 24.4 Seconds (25.1-36.5) L 07/19/18 18:50 - Constitutional Appears: Non-toxic, No Acute Distress - Head Exam Head Exam: ATRAUMATIC, NORMAL INSPECTION, NORMOCEPHALIC - Eye Exam Eye Exam: EOMI, Normal appearance, PERRL - Respiratory Exam Respiratory Exam: Clear to Ausculation Bilateral, NORMAL BREATHING PATTERN. absent: Accessory Muscle Use, Decreased Breath Sounds, Rales, Rhonchi, Wheezes, Respiratory Distress, Stridor - Cardiovascular Exam Cardiovascular Exam: RRR, +S1, +S2. absent: Gallop, Rubs - GI/Abdominal Exam GI & Abdominal Exam: Soft, Normal Bowel Sounds. absent: Distended, Firm, Guarding, Rigid, Tenderness - Extremities Exam Extremities Exam: absent: Calf Tenderness, Pedal Edema, Tenderness - Back Exam Back Exam: NORMAL INSPECTION. absent: CVA tenderness (L), CVA tenderness (R) - Neurological Exam Neurological Exam: Alert, Awake, Oriented x3 - Psychiatric Exam Psychiatric exam: Normal Affect, Normal Mood - Skin Skin Exam: Dry, Normal Color, Warm Assessment and Plan - Assessment and Plan (Free Text) Assessment: Pt is a 73 year old Luxembourger speaking female with PMH of HLD, HTN, asthma, pacemaker, CAD, PUD and diverticulosis presenting to the ED for one day history of bright red in stool. Pt transfused 2 units PRBCs yesterday, and has responded approriately to the second unit. Pt reports another bloody BM today. GI spoke with pt in terms of scope and pt is in agreement with plan for scope tomorrow. Plan: 1. Diverticulitis and bleeding diverticuli - c/w IV cipro, PO flagyl - protonix 40mg IV BID - blood cx neg x 48 hrs - Colonoscopy on 11/11/14 showed actively bleeding diverticulosis, internal hemorrhoids - Colonoscopy will be scheduled for Tuesday, pt is in agreement and has started prep. - GI on consult, Dr. Cadet 2. Anemia s/p 2 unit transfusion on 07/22 - continued bloody BM - Pt had 2 units PRBC transfusion yesterday, responded appropriately to 2nd unit - CBC Q12 - will continue to monitor 3. Hx of asthma -duonebs prn 4. Hx of HLD -lipid panel WNL 5. Hx of HTN - will hold all home BP meds in setting of hypotension/ normotension 6. PPX: GI: protonix DVT: SCD Liquid Diet per GI no jello or broth Case discussed with Dr. Tobias Mora DO Internal Medicine PGY-1 <Daiana Ordoñez R - Last Filed: 07/24/18 21:36> Objective - Vital Signs/Intake and Output Vital Signs (last 24 hours): Temp Pulse Resp BP Pulse Ox 98 F 82 20 127/60 95 07/24/18 17:26 07/24/18 18:00 07/24/18 17:26 07/24/18 17:26 07/24/18 12:35 Intake and Output: 07/24/18 07/25/18 18:59 06:59 Intake Total 480 Balance 480 - Labs Labs: 07/24/18 05:30 07/24/18 05:30 PT 11.9 SECONDS (9.4-12.5) 07/19/18 18:50 INR 1.04 07/19/18 18:50 APTT 24.4 Seconds (25.1-36.5) L 07/19/18 18:50 Attending/Attestation - Attestation I have personally seen and examined this patient.: Yes I have fully participated in the care of the patient.: Yes I have reviewed all pertinent clinical information, including history, physical exam and plan: Yes Notes (Text): Patient seen and examined by me with resident at 9AM on 07/23/18. Case including HPI, physical exam, and assessment and plan discussed with resident. Agree with above with following additions/corrections. Patient is a 73-year-old Luxembourger-speaking female with past medical history significant for hyperlipidemia, hypertension, asthma, pacemaker, coronary artery disease, peptic ulcer disease, and diverticulosis of presented to the emergency room with bright red blood per rectum. scalp specialist Yared # [id number] used for translation. Patient states she feels slightly better today. States she is still having bloody bowel movements. Patient states her appetite has also slightly increased. Patient is agreeing to have colonoscopy done. No nausea, vomiting, or abdominal pain. No shortness of breath. No fevers or chills. No headaches or lightheadedness. No chest pain or palpitations. No dysuria. Physical exam: General: Awake and alert lying in bed in no acute distress HEENT: Normocephalic, atraumatic. Extraocular muscles intact, pupils equal and reactive, no scleral icterus. Oropharynx is pink and moist. Neck is supple. Cardiovascular: Regular rhythm. Normal S1 and S2. No murmurs, rubs, or gallops appreciated Pulmonary: Normal respiratory effort. No rhonchi, rales, or wheezing appreciated. Gastrointestinal: Soft, nondistended. Nontender. Positive bowel sounds all 4 quadrants. No guarding. Musculoskeletal: Moves all extremities. No calf tenderness. No edema appreciated Central nervous system: AAOx3 Dermatologic: Skin warm and dry. Assessment and plan: Patient is a 73-year-old Luxembourger-speaking female with past medical history significant for hyperlipidemia, hypertension, asthma, pacemaker, coronary artery disease, peptic ulcer disease, and diverticulosis of presented to the emergency room with bright red blood per rectum. 1. Diverticulitis. Rectal bleeding. S/P 2 units PRBCs. Patient for limited colonoscopy tomorrow. GI following, recommendations appreciated. Continue clear liquid diet. NPO after midnight. CT abd/pelvis per radiologist showed diverticulosis of the descending and sigmoid colon; minimal inflammatory changes are seen around the descending colon consistent with mild diverticulitis. Patient swtiched from [facility] to [facility] by ID. 2. Anemia secondary to acute blood loss from rectal bleeding. Status post2 units PRBCs with improvement. Continue to monitor CBC. 3. Coronary artery disease. No current issues. No chest pain. Home enalapril held secondary to lower blood pressure likely secondary to bleeding. Continue home Lipitor. 4. Essential hypertension. Home enalapril and hydralazine held for now secondary to lower blood pressure likely secondary to anemia and bleeding. 5. Hyperlipidemia. Continue home Lipitor. 6. History of asthma. Likely mild intermittent. Not in acute exacerbation. Not on home medications. Continue nebulizer treatments as needed. 7. GI prophylaxis. Protonix. 8. DVT prophylaxis. SCDs. 9. Patient is a full code Case was discussed in detail with the patient regarding current diagnosis and treatment plan. All questions answered.
--- NOTE | 2018-07-23 14:36 | CON ---
DATE OF CONSULTATION: 07/23/2018 The patient is seen in Room 260, Bed 2. CHIEF COMPLAINT: Rectal bleeding x1 day duration. HISTORY OF PRESENT ILLNESS: This is a 73-year-old female, who speaks Vietnamese, who states that she has a history of hypertension, asthma, has a pacemaker and presents to the emergency room having rectal bleeding. The patient had some discomfort in bowel movements and she found blood in her stool. She denies any fevers, any chills, any nausea, vomiting, chest pain. PAST MEDICAL HISTORY: Significant for hypertension, asthma, ectopic and diverticulosis. PAST SURGICAL HISTORY: Significant for D and C for an ectopic . Also has a pacemaker. MEDICATIONS AT HOME: Enalapril, Lipitor, hydralazine, Lasix, metronidazole and Cipro. ALLERGIES: THE PATIENT HAS NO KNOWN ALLERGIES. REVIEW OF SYSTEMS: A 14-point review of systems is reviewed. The patient also had upper endoscopy and colonoscopy, which showed nonbleeding ulcers in the past. The patient also has a history of diverticulosis. PHYSICAL EXAMINATION: GENERAL: The patient is in bed in no acute distress. VITAL SIGNS: Temperature of 98, heart rate of 96, blood pressure is 112/70, respiratory rate of 21. HEENT: Unremarkable. NECK: Supple. LUNGS: Decreased breath sounds. HEART: Normal S1, S2. ABDOMEN: Soft, nontender. Mild tenderness in the left lower quadrant, but no rebound or guarding. No masses. LABORATORY EXAMINATION: White count of 7.3, hemoglobin of 9. Coagulation is noted. Chemistries reveal a BUN of 6, creatinine of 0.8. The patient had a CT scan of the abdomen, which revealed possible mild diverticulitis. ASSESSMENT AND PLAN: This is a 73-year-old female with hypertension, asthma, history of ectopic , who has a pacemaker, whose blood cultures are negative, who was admitted with rectal bleeding, tachycardia, dyspnea, and positive CT scan of the abdomen. #1 is sepsis with mild diverticulitis. The patient was on Cipro and Flagyl as outpatient. We would treat with Zosyn and check on a final blood culture result. We will follow closely with you. Barrington Hartmann MD
[2018-07-24] MEDS: Piperacillin/Tazobact 3.375 gm 100 ML IVPB SCH (05:05)
[2018-07-24] MEDS: metroNIDAZOLE IV 500 mg/100 ml 500 MG/100 ML BAG IVPB SCH ×2 (05:05→16:35)
[2018-07-24 05:48] LABS: BASO # 0.03 K/mm3 (0.0-2.0); BASO % 0.5 % (0.0-3.0); EOS # 0.3 (0.0-0.7); EOS % 4.9 % (1.5-5.0); GRAN # 3.54 (1.4-6.5); HEMOGLOBIN 8.4 g/dL (12.0-16.0); LYMPH # 1.3 (1.2-3.4); LYMPH % 22.8 % (22.0-35.0); MEAN CELL VOLUME 95.5 fl (80.0-105.0); MEAN CORPUSCULAR HEMOGLOBIN 31.3 pg (25.0-35.0); MEAN CORPUSCULAR HGB CONC 32.8 g/dl (31.0-37.0); MEAN PLATELET VOLUME 9.1 fl (7.0-11.0); MONO # 0.4 (0.1-0.6); MONO % 7.8 % (1.0-6.0); RBC 2.68 10^6/uL (3.5-6.1); RED CELL DISTRIBUTION WIDTH 17.8 % (11.5-14.5); WHITE BLOOD COUNT 5.5 10^3/uL (4.5-11.0)
[2018-07-24 06:09] LABS: BLOOD UREA NITROGEN 6 mg/dL (7-21); GFR NON-AFRICAN AMERICAN > 60
[2018-07-24] MEDS ORDERED: Potassium Chloride 40 mEq/30 ml LIQ UD PO STA (08:49)
--- NOTE | 2018-07-24 10:43 | CP.PCM.PN ---
Subjective - Date & Time of Evaluation Date of Evaluation: 07/23/18 Time of Evaluation: 08:00 - Subjective Subjective: Abdominal pain is a little better, no fevers. For colonoscopy today. Objective - Vital Signs/Intake and Output Vital Signs (last 24 hours): Temp Pulse Resp BP Pulse Ox 98.6 F 105 H 18 131/76 97 07/23/18 18:00 07/23/18 18:00 07/23/18 18:00 07/23/18 18:00 07/23/18 18:00 Intake and Output: 07/23/18 07/24/18 18:59 06:59 Intake Total 1140 Balance 1140 - Medications Medications: Current Medications Albuterol/Ipratropium (Duoneb 3 Mg/0.5 Mg (3 Ml) Ud) 3 ml IH Q2H PRN PRN Reason: Shortness of Breath Last Admin: 07/20/18 18:05 Dose: 3 ml Atorvastatin Calcium (Lipitor) 20 mg PO DIN [facility] Last Admin: 07/23/18 17:18 Dose: 20 mg Metronidazole (Flagyl) 500 mg in 100 mls @ 100 mls/hr IVPB Q8 [facility]ADY; Protocol Last Admin: 07/23/18 19:50 Dose: 100 mls/hr Piperacillin Sod/Tazobactam Sod (Zosyn 3.375 In Ns 100ml) 100 mls @ 25 mls/hr IVPB Q8 FADY; Protocol Stop: 07/31/18 23:57 Last Admin: 07/23/18 19:50 Dose: Not Given Oxybutynin Chloride (Ditropan Tab) 5 mg PO DAILY [facility] Last Admin: 07/23/18 09:44 Dose: 5 mg Pantoprazole Sodium (Protonix Inj) 40 mg IVP Q12 [facility]ADY Last Admin: 07/23/18 09:53 Dose: 40 mg - Labs Labs: 07/23/18 06:30 07/23/18 06:30 PT 11.9 SECONDS (9.4-12.5) 07/19/18 18:50 INR 1.04 07/19/18 18:50 APTT 24.4 Seconds (25.1-36.5) L 07/19/18 18:50 - Constitutional Appears: Chronically Ill - Head Exam Head Exam: NORMAL INSPECTION - Neck Exam Neck Exam: absent: Meningismus - Respiratory Exam Respiratory Exam: Decreased Breath Sounds - Cardiovascular Exam Cardiovascular Exam: +S1, +S2 - GI/Abdominal Exam GI & Abdominal Exam: Soft. absent: Tenderness Assessment and Plan - Assessment and Plan (Free Text) Plan: Assessment Sepsis due to acute diverticulitis HTN asthma history of ectopic S/P pacemaker placement Plan continue Zosyn day 2 and will follow up final blood cx results will monitor clinically follow up colonoscopy results
--- NOTE | 2018-07-24 10:53 | RAD ---
Date of service: 07/24/2018 HISTORY: clearance COMPARISON: No prior. FINDINGS: LUNGS: Small left lung base opacity likely atelectasis. Mild hyperinflation of the lungs noted. PLEURA: No significant pleural effusion identified, no pneumothorax apparent. CARDIOVASCULAR: No aortic atherosclerotic calcification present. Normal cardiac size. No pulmonary vascular congestion. OSSEOUS STRUCTURES: No significant abnormalities. VISUALIZED UPPER ABDOMEN: Normal. OTHER FINDINGS: Single wire left-sided pacemaker or AICD is seen in place. IMPRESSION: Small opacity at the left lung base likely atelectasis.
[2018-07-24] MEDS ORDERED: Lidocaine 1% Inj (20ml) ONE (11:28)
[2018-07-24] MEDS ORDERED: Propofol 10 mg/ml Inj (20 ML) ONE (11:28)
[2018-07-24] MEDS ORDERED: Sodium Chloride 0.9% 1,000 ML IV SCH (12:15)
--- NOTE | 2018-07-24 12:16 | PN ---
DATE: 07/24/2018 SUBJECTIVE: I saw Mrs. Rafita Anderson this morning. She is a 73-year-old female, admitted with complaints of painless rectal bleeding. She was found to have possibly mild diverticulosis involving the distal descending colon and sigmoid. I reviewed the issue of brief colonoscopic evaluation of the colon to delineate the source of bleeding in this patient which has been occurring over the past couple of days. The patient is scheduled for colonoscopy later on today. I reviewed the issue of the colon prep with the nurse on the floor this morning and they indicated that the patient finished colon prep roughly around midnight with no evidence of bleeding. The patient also has no abdominal pain. PHYSICAL EXAMINATION: VITAL SIGNS: I reviewed the patient's vital signs. HEENT: Noncontributory. LUNGS: Decreased breath sounds at bases. HEART: Irregular rhythm. ABDOMEN: Soft. No tenderness elicited, LABORATORY DATA: Last laboratory data at 5:30 this morning, H and H of 8.4 and 25.6. I reviewed the consultations from respective physicians including the house staff, Dr. Stevenson, Dr. Ordoñez, Dr. Hartmann. ASSESSMENT: This is a 73-year-old female with painless rectal bleeding, had no bleeding from the colon last night during a colon prep. The patient is currently on Zosyn as per Dr. Hartmann. The procedure is pending for this morning. Most likely, this will be a limited study due to the possibility of diverticulitis. Vinay Cadet DO, PhD BONNIE
[2018-07-24 12:41] VITALS: O2SAT 95
--- NOTE | 2018-07-24 14:53 | CP.PCM.PN ---
<Sarah Marshah - Last Filed: 07/24/18 14:54> Subjective - Date & Time of Evaluation Date of Evaluation: 07/24/18 Time of Evaluation: 07:30 - Subjective Subjective: Internal Medicine Progress note Dr. Baldwin Patient seen and examined this am at bedside. NAEO per nursing. Patient is resting comfortably and denies any JEROME, CP, SOB, abdominal pain, n/v, f/c and extremity pain or weakness. Objective - Vital Signs/Intake and Output Vital Signs (last 24 hours): Temp Pulse Resp BP Pulse Ox 98 F 88 12 125/49 L 95 07/24/18 12:35 07/24/18 12:35 07/24/18 12:35 07/24/18 12:35 07/24/18 12:35 Intake and Output: 07/24/18 07/24/18 06:59 18:59 Intake Total 1540 Balance 1540 - Medications Medications: Current Medications Albuterol/Ipratropium (Duoneb 3 Mg/0.5 Mg (3 Ml) Ud) 3 ml IH Q2H PRN PRN Reason: Shortness of Breath Last Admin: 07/20/18 18:05 Dose: 3 ml Atorvastatin Calcium (Lipitor) 20 mg PO DIN FADY Last Admin: 07/23/18 17:18 Dose: 20 mg Metronidazole (Flagyl) 500 mg in 100 mls @ 100 mls/hr IVPB Q8 FADY; Protocol Last Admin: 07/24/18 05:05 Dose: 100 mls/hr Piperacillin Sod/Tazobactam Sod (Zosyn 3.375 In Ns 100ml) 100 mls @ 25 mls/hr I VPB Q8 FADY; Protocol Stop: 07/31/18 23:57 Last Admin: 07/24/18 05:05 Dose: 25 mls/hr Sodium Chloride (Sodium Chloride 0.9%) 1,000 mls @ 100 mls/hr IV .Q10H FADY Oxybutynin Chloride (Ditropan Tab) 5 mg PO DAILY [facility] Last Admin: 07/23/18 09:44 Dose: 5 mg Pantoprazole Sodium (Protonix Inj) 40 mg IVP Q12 FADY Last Admin: 07/23/18 21:03 Dose: 40 mg - Labs Labs: 07/24/18 05:30 07/24/18 05:30 PT 11.9 SECONDS (9.4-12.5) 07/19/18 18:50 INR 1.04 07/19/18 18:50 APTT 24.4 Seconds (25.1-36.5) L 07/19/18 18:50 - Constitutional Appears: Well, Non-toxic, No Acute Distress - Head Exam Head Exam: ATRAUMATIC, NORMOCEPHALIC - Eye Exam Eye Exam: EOMI - ENT Exam ENT Exam: Mucous Membranes Moist - Respiratory Exam Respiratory Exam: NORMAL BREATHING PATTERN - Cardiovascular Exam Cardiovascular Exam: REGULAR RHYTHM - GI/Abdominal Exam GI & Abdominal Exam: Soft. absent: Distended, Guarding, Tenderness - Extremities Exam Extremities Exam: absent: Calf Tenderness, Pedal Edema - Neurological Exam Neurological Exam: Alert, Awake, Oriented x3 - Psychiatric Exam Psychiatric exam: Normal Affect, Normal Mood - Skin Skin Exam: Dry, Intact, Normal Color, Warm Assessment and Plan - Assessment and Plan (Free Text) Assessment: 73 yr old female with diverticulitis and diverticular GI bleed Plan: 1. Diverticulitis and bleeding diverticuli - c/w IV cipro, PO flagyl - protonix 40mg IV BID - blood cx neg x 72 hrs - Colonoscopy today - GI on consult, Dr. Cadet 2. Anemia s/p 2 unit transfusion on 07/22 - continued bloody BM - hgb 8.4 - CBC Q12 - will continue to monitor 3. Hx of asthma -duonebs prn 4. Hx of HLD -lipid panel WNL 5. Hx of HTN - will hold all home BP meds in setting of hypotension/ normotension 6. PPX: GI: protonix DVT: SCD <Genaro Baldwin - Last Filed: 07/25/18 14:33> Objective - Vital Signs/Intake and Output Vital Signs (last 24 hours): Temp Pulse Resp BP Pulse Ox 98 F 82 20 127/60 95 07/24/18 17:26 07/24/18 18:00 07/24/18 17:26 07/24/18 17:26 07/24/18 12:35 - Labs Labs: 07/24/18 05:30 07/24/18 05:30 PT 11.9 SECONDS (9.4-12.5) 07/19/18 18:50 INR 1.04 07/19/18 18:50 APTT 24.4 Seconds (25.1-36.5) L 07/19/18 18:50 Attending/Attestation - Attestation I have personally seen and examined this patient.: Yes I have fully participated in the care of the patient.: Yes I have reviewed all pertinent clinical information, including history, physical exam and plan: Yes Notes (Text): 07/25/18 14:30 Attending note; Patient seen and examined with resident. Patient is a 73-year-old Slovak-speaking female with past medical history significant for hyperlipidemia, hypertension, asthma, pacemaker, coronary artery disease, peptic ulcer disease, and diverticulosis of presented to the emergency room with bright red blood per rectum. 1. Diverticulitis. Rectal bleeding. S/P 2 units PRBC transfusion. Currently no active bleeding. Going for colonoscopy today. Will follow up with GI. CT abd/pelvis showed diverticulosis of the descending and sigmoid colon; minimal inflammatory changes are seen around the descending colon consistent with mild diverticulitis. Patient [facility] to [facility] [place]. 2. Anemia secondary to acute blood loss from rectal bleeding. Status post2 units PRBCs with improvement. 3. Coronary artery disease. No current issues. No chest pain. 4. GI prophylaxis. Protonix. 5. DVT prophylaxis. SCDs. Upon discharge the patient will follow up with PMD DR. Bennett. Case was discussed in detail with the patient regarding current diagnosis and treatment plan. 07/25/18 14:32
[2018-07-24 17:27] VITALS: BP 127/60; RESP 20; TEMP 98
[2018-07-24 18:52] VITALS: PULSE 82
--- NOTE | 2018-07-25 07:59 | CP.PCM.DIS ---
<Cora Marsh - Last Filed: 07/25/18 08:04> Provider - Provider Date of Admission: 07/21/18 13:07 Attending physician: Genaro Baldwin MD Consults: 07/19/18 21:46 Gastroenterology Consult Stat Comment: Consulting Provider: Vinay Cadet Consulting Physician: Vinay Cadet Reason for Consult: anemia, hx of GI bleed 07/22/18 14:33 Infectious Disease Consult Routine Comment: Consulting Provider: Gabe Rosario Consulting Physician: Gabe Rosario Reason for Consult: Abx management Time Spent in preparation of Discharge (in minutes): 45 Hospital Course - Lab Results Lab Results: Micro Results 07/19/18 21:45 Blood Blood Culture - Final NO GROWTH AFTER 5 DAYS 07/19/18 21:45 Blood Gram Stain - Final TEST NOT PERFORMED 07/19/18 21:15 Blood Blood Culture - Final NO GROWTH AFTER 5 DAYS 07/19/18 21:15 Blood Gram Stain - Final TEST NOT PERFORMED Most Recent Lab Values WBC 5.5 10^3/uL (4.5-11.0) D 07/24/18 05:30 RBC 2.68 10^6/uL (3.5-6.1) L 07/24/18 05:30 Hgb 8.4 g/dL (12.0-16.0) L 07/24/18 05:30 Hct 25.6 % (36.0-48.0) L 07/24/18 05:30 MCV 95.5 fl (80.0-105.0) 07/24/18 05:30 MCH 31.3 pg (25.0-35.0) 07/24/18 05:30 MCHC 32.8 g/dl (31.0-37.0) 07/24/18 05:30 RDW 17.8 % (11.5-14.5) H 07/24/18 05:30 Plt Count 276 10^3/uL (120.0-450.0) 07/24/18 05:30 MPV 9.1 fl (7.0-11.0) 07/24/18 05:30 Gran % 64.0 % (50.0-68.0) 07/24/18 05:30 Lymph % (Auto) 22.8 % (22.0-35.0) 07/24/18 05:30 A[place]ac % (Auto) 7.8 % (1.0-6.0) H 07/24/18 05:30 Eos % (Auto) 4.9 % (1.5-5.0) 07/24/18 05:30 Baso % (Auto) 0.5 % (0.0-3.0) 07/24/18 05:30 Gran # 3.54 (1.4-6.5) 07/24/18 05:30 Lymph # (Auto) 1.3 (1.2-3.4) 07/24/18 05:30 [place] # (Auto) 0.4 (0.1-0.6) 07/24/18 05:30 Eos # (Auto) 0.3 (0.0-0.7) 07/24/18 05:30 Baso # (Auto) 0.03 K/mm3 (0.0-2.0) 07/24/18 05:30 PT 11.9 SECONDS (9.4-12.5) 07/19/18 18:50 INR 1.04 07/19/18 18:50 APTT 24.4 Seconds (25.1-36.5) L 07/19/18 18:50 Sodium 140 mmol/L (132-148) 07/24/18 05:30 Potassium 3.5 mmol/L (3.6-5.0) L 07/24/18 05:30 Chloride 109 mmol/L (98-107) H 07/24/18 05:30 Carbon Dioxide 30 mmol/L (21-33) 07/24/18 05:30 Anion Gap 4 (10-20) L 07/24/18 05:30 BUN 6 mg/dL (7-21) L 07/24/18 05:30 Creatinine 0.9 mg/dl (0.7-1.2) 07/24/18 05:30 Est GFR ( Amer) > 60 07/24/18 05:30 Est GFR (Non-Af Amer) > 60 07/24/18 05:30 Random Glucose 74 mg/dL (70-110) 07/24/18 05:30 Calcium 8.0 mg/dL (8.4-10.5) L 07/24/18 05:30 Phosphorus 3.0 mg/dL (2.5-4.5) 07/20/18 07:00 Magnesium 1.9 mg/dL (1.7-2.2) 07/23/18 06:30 Iron 87 ug/dL (45-180) 07/20/18 07:00 TIBC 225 ug/dL (265-497) L 07/20/18 07:00 % Saturation 39 % (20-55) 07/20/18 07:00 Total Bilirubin 0.3 mg/dL (0.2-1.3) 07/19/18 23:50 AST 26 U/L (14-36) 07/19/18 23:50 ALT 26 U/L (7-56) 07/19/18 23:50 Alkaline Phosphatase 61 U/L (38-126) 07/19/18 23:50 Total Protein 5.4 g/dL (5.8-8.3) L 07/19/18 23:50 Albumin 2.4 g/dL (3.0-4.8) L 07/21/18 08:30 Globulin 2.8 gm/dL 07/19/18 23:50 Albumin/Globulin Ratio 0.9 (1.1-1.8) L 07/19/18 23:50 Triglycerides 149 mg/dL (35-160) 07/20/18 07:00 Cholesterol 131 mg/dL (130-200) 07/20/18 07:00 LDL Cholesterol Direct 71 mg/dL (0-129) 07/20/18 07:00 HDL Cholesterol 43 mg/dL (29-60) 07/20/18 07:00 Lipase 46 U/L (23-300) 07/19/18 18:50 Vitamin B12 791 pg/mL (239-931) 07/20/18 07:00 Folate > 20.0 ng/mL 07/20/18 07:00 Blood Type B POSITIVE 07/21/18 15:30 Blood Type Confirm B POSITIVE 07/20/18 07:00 Antibody Screen Negative 07/21/18 15:30 Crossmatch See Detail 07/21/18 15:30 BBK History Checked Patient has bt 07/21/18 15:30 - Hospital Course Hospital Course: Upon admission: This is a 73 year old Afghan speaking female with PMH of HLD, HTN, asthma, pacemaker, CAD, PUD and diverticulosis presenting to the ED for one day history of bright red in stool. Patient states she had a regular bowel movement on Tuesday night and found mild amount of bright red blood in the toilet and had similar findings the next morning as well after another bowel movement. She is also complaining of fatigue over the last few weeks and occasional epigastric pain but no pain at this time. Patient states she received pain medication and antibiotics from her dentist recently for molar pain but is unsure of the name. She denies CP, SOB, fevers, headaches, chills, nausea, vomiting, abdominal pain, back pain, urinary complaints, numbness, tingling, swelling, diarrhea, constipation, recent travel, sickness, trauma and lifestyle change. 12 point ROS noted here, otherwise unremarkable. Patient was subsequently diagnosed with diverticulitis confirmed on CT scan. GI was consulted for management of her GI bleeding. During her hospital stay patient continued to have bloody BM and required 2 units of PRBC transfused. She denied abdominal pain, f/c, n/v, CP, SOB and extremity pain/weakness throughout her stay. Infectious Disease was consulted to manage antibiotic coverage of her diverticulitis. Patient was placed on Cipro and flagyl. On hospital Day 5 patient underwent colonoscopy which revealed diverticula in the colon but no active bleeding. The patient did not have any further bloody BM and tolerated a soft diet that evening for dinner. She was subsequently deemed stable for Discharge by Dr. Baldwin and was discharged from the hospital. Prior to discharge patient was given prescription medications (Ciprofloxacin, flagyl, protonix) which were filled here at [facility] pharmacy and were delivered to her room. PAtient was instructed to follow up with her primary car doctor within 3-5 days and to return to the nearest ED if her symptoms returned. - Date & Time of H&P Date of H&P: 07/24/18 Time of H&P: 07:15 Discharge Exam - Head Exam Head Exam: ATRAUMATIC, NORMOCEPHALIC - Eye Exam Eye Exam: EOMI - ENT Exam ENT Exam: Mucous Membranes Moist - Respiratory Exam Respiratory Exam: NORMAL BREATHING PATTERN - Cardiovascular Exam Cardiovascular Exam: REGULAR RHYTHM - GI/Abdominal Exam GI & Abdominal Exam: Soft. absent: Distended, Guarding, Tenderness - Extremities Exam Extremities exam: normal capillary refill, pedal pulses present - Neurological Exam Neurological exam: Alert, Oriented x3 - Psychiatric Exam Psychiatric exam: Normal Affect, Normal Mood - Skin Skin Exam: Dry, Intact, Normal Color, Warm Discharge Plan - Discharge Medications Prescriptions: Pantoprazole [Protonix] 40 mg PO DAILY #30 ect - Follow Up Plan Condition: FAIR Disposition: HOME/ ROUTINE Instructions: Ciprofloxacin (Systemic), Metronidazole (Systemic), Bloody Stools, Adult (DC) Additional Instructions: Please follow up with your primary care doctor, Dr. Bennett, in 3-5 days. Please follow up with the emissions testing and repair technician, Dr. Cadet, within one week of being discharged from the hospital. Please complete course of antibiotics: - Ciprofloxacin 500mg TWICE per day for 5 more days - Metronidazole 500mg THREE times per day for 5 more days. You have been prescribed a new medication that will help to reduce acid in your stomach called Protonix. You will need to take this once daily. Please continue home medications as prescribed. If your symptoms return, please go to the nearest emergency department. Referrals: Vinay Cadet DO [Staff Provider] - <Genaro Baldwin - Last Filed: 07/25/18 14:34> Provider - Provider Date of Admission: 07/21/18 13:07 Attending physician: Genaro Baldwin MD Consults: 07/19/18 21:46 Gastroenterology Consult Stat Comment: Consulting Provider: Vinay Cadet Consulting Physician: Vinay Cadet Reason for Consult: anemia, hx of GI bleed 07/22/18 14:33 Infectious Disease Consult Routine Comment: Consulting Provider: Gabe Rosario Consulting Physician: Gabe Rosario Reason for Consult: Abx management Hospital Course - Lab Results Lab Results: Micro Results 07/19/18 21:45 Blood Blood Culture - Final NO GROWTH AFTER 5 DAYS 07/19/18 21:45 Blood Gram Stain - Final TEST NOT PERFORMED 07/19/18 21:15 Blood Blood Culture - Final NO GROWTH AFTER 5 DAYS 07/19/18 21:15 Blood Gram Stain - Final TEST NOT PERFORMED Most Recent Lab Values WBC 5.5 10^3/uL (4.5-11.0) D 07/24/18 05:30 RBC 2.68 10^6/uL (3.5-6.1) L 07/24/18 05:30 Hgb 8.4 g/dL (12.0-16.0) L 07/24/18 05:30 Hct 25.6 % (36.0-48.0) L 07/24/18 05:30 MCV 95.5 fl (80.0-105.0) 07/24/18 05:30 MCH 31.3 pg (25.0-35.0) 07/24/18 05:30 MCHC 32.8 g/dl (31.0-37.0) 07/24/18 05:30 RDW 17.8 % (11.5-14.5) H 07/24/18 05:30 Plt Count 276 10^3/uL (120.0-450.0) 07/24/18 05:30 MPV 9.1 fl (7.0-11.0) 07/24/18 05:30 Gran % 64.0 % (50.0-68.0) 07/24/18 05:30 Lymph % (Auto) 22.8 % (22.0-35.0) 07/24/18 05:30 A[place]ac % (Auto) 7.8 % (1.0-6.0) H 07/24/18 05:30 Eos % (Auto) 4.9 % (1.5-5.0) 07/24/18 05:30 Baso % (Auto) 0.5 % (0.0-3.0) 07/24/18 05:30 Gran # 3.54 (1.4-6.5) 07/24/18 05:30 Lymph # (Auto) 1.3 (1.2-3.4) 07/24/18 05:30 [place]ac # (Auto) 0.4 (0.1-0.6) 07/24/18 05:30 Eos # (Auto) 0.3 (0.0-0.7) 07/24/18 05:30 Baso # (Auto) 0.03 K/mm3 (0.0-2.0) 07/24/18 05:30 PT 11.9 SECONDS (9.4-12.5) 07/19/18 18:50 INR 1.04 07/19/18 18:50 APTT 24.4 Seconds (25.1-36.5) L 07/19/18 18:50 Sodium 140 mmol/L (132-148) 07/24/18 05:30 Potassium 3.5 mmol/L (3.6-5.0) L 07/24/18 05:30 Chloride 109 mmol/L (98-107) H 07/24/18 05:30 Carbon Dioxide 30 mmol/L (21-33) 07/24/18 05:30 Anion Gap 4 (10-20) L 07/24/18 05:30 BUN 6 mg/dL (7-21) L 07/24/18 05:30 Creatinine 0.9 mg/dl (0.7-1.2) 07/24/18 05:30 Est GFR ( Amer) > 60 07/24/18 05:30 Est GFR (Non-Af Amer) > 60 07/24/18 05:30 Random Glucose 74 mg/dL (70-110) 07/24/18 05:30 Calcium 8.0 mg/dL (8.4-10.5) L 07/24/18 05:30 Phosphorus 3.0 mg/dL (2.5-4.5) 07/20/18 07:00 Magnesium 1.9 mg/dL (1.7-2.2) 07/23/18 06:30 Iron 87 ug/dL (45-180) 07/20/18 07:00 TIBC 225 ug/dL (265-497) L 07/20/18 07:00 % Saturation 39 % (20-55) 07/20/18 07:00 Total Bilirubin 0.3 mg/dL (0.2-1.3) 07/19/18 23:50 AST 26 U/L (14-36) 07/19/18 23:50 ALT 26 U/L (7-56) 07/19/18 23:50 Alkaline Phosphatase 61 U/L (38-126) 07/19/18 23:50 Total Protein 5.4 g/dL (5.8-8.3) L 07/19/18 23:50 Albumin 2.4 g/dL (3.0-4.8) L 07/21/18 08:30 Globulin 2.8 gm/dL 07/19/18 23:50 Albumin/Globulin Ratio 0.9 (1.1-1.8) L 07/19/18 23:50 Triglycerides 149 mg/dL (35-160) 07/20/18 07:00 Cholesterol 131 mg/dL (130-200) 07/20/18 07:00 LDL Cholesterol Direct 71 mg/dL (0-129) 07/20/18 07:00 HDL Cholesterol 43 mg/dL (29-60) 07/20/18 07:00 Lipase 46 U/L (23-300) 07/19/18 18:50 Vitamin B12 791 pg/mL (239-931) 07/20/18 07:00 Folate > 20.0 ng/mL 07/20/18 07:00 Blood Type B POSITIVE 07/21/18 15:30 Blood Type Confirm B POSITIVE 07/20/18 07:00 Antibody Screen Negative 07/21/18 15:30 Crossmatch See Detail 07/21/18 15:30 BBK History Checked Patient has bt 07/21/18 15:30 Attending/Attestation - Attestation I have personally seen and examined this patient.: Yes I have fully participated in the care of the patient.: Yes I have reviewed all pertinent clinical information, including history, physical exam and plan: Yes Notes (Text): 07/25/18 14:33 Attending note; Patient seen and examined with resident. Patient is a 73-year-old Afghan-speaking female with past medical history significant for hyperlipidemia, hypertension, asthma, pacemaker, coronary artery disease, peptic ulcer disease, and diverticulosis of presented to the emergency room with bright red blood per rectum. 1. Diverticulitis. Rectal bleeding. S/P 2 units PRBC transfusion. Currently no active bleeding. Status post colonoscopy today. Case discussed with GI in detail. No active bleeding noted. Patient has diverticulosis. Started on diet. Tolerating diet well. Discharge home with cipro and flagyl. 2. Anemia secondary to acute blood loss from rectal bleeding. Status post2 units PRBCs with improvement. Follow-up CBC as outpatient . 3. Coronary artery disease. No current issues. No chest pain. 4. GI prophylaxis. Protonix. 5. DVT prophylaxis. SCDs. Upon discharge the patient will follow up with PMD DR. Bennett. Case discussed in detail with the patient regarding current diagnosis and treatment plan.
== END 2018-07-24 20:51 | disposition home or self-care (01) | DRG 871 ==
LOC: ED 16:44 → ERH 21:10 → 2RNO 07-20 00:49 → OBSVTOIN 07-21 13:07
PROVIDERS: ADMIT Internal Medicine; ATTEND Internal Medicine
PROC: 0DJD8ZZ Inspection of Lower Intestinal Tract, Via Natural or Artificial Opening Endoscopic (ICD-10-PCS; principal; 2018-07-24 11:30)
DX: A41.9 Sepsis, unspecified organism (principal); K57.33 Diverticulitis of large intestine without perforation or abscess with bleeding; D62 Acute posthemorrhagic anemia; E78.5 Hyperlipidemia, unspecified; I10 Essential (primary) hypertension; I25.10 Atherosclerotic heart disease of native coronary artery without angina pectoris; J45.909 Unspecified asthma, uncomplicated; K08.89 Other specified disorders of teeth and supporting structures; Z87.11 Personal history of peptic ulcer disease; Z87.891 Personal history of nicotine dependence; Z95.0 Presence of cardiac pacemaker; D12.5 Benign neoplasm of sigmoid colon; K64.8 Other hemorrhoids

== ENCOUNTER 2018-11-08 13:39 | Emergency (ER) | payer MEDICARE ==
[2018-11-08 13:53] VITALS: BMI 20.1
[2018-11-08 14:00] VITALS: RESP 18; TEMP 97.8
[2018-11-08] MEDS ORDERED: Albuterol-Ipratrop 3 mg / 0.5 (3 ml) UD IH STA ×2 (14:22→16:46)
--- NOTE | 2018-11-08 14:33 | ED PDOC ---
Arrival/HPI - General Chief Complaint: Shortness Of Breath Time Seen by Provider: 11/08/18 13:47 Historian: Patient - History of Present Illness Narrative History of Present Illness (Text): 11/08/18 14:15 73 year old F with pmh of asthma, pacemaker and possible chf presents complaining of trouble breathing x3days. Patient reports that her nebulizer is not relieving her trouble breathing. Patient recalls that her doctor recently told her she may have fluid in her lungs, she was prescribed Lasix one dose. Patient denies any fevers, chills, headache, dizziness, cough, diaphoresis, abdominal pain, nausea, vomiting, diarrhea, or any other complaint. PCP: Dr. Bennett Symptom Onset: Sudden Symptom Course: Unchanged Activities at Onset: Light Context: Home Past Medical History - Provider Review Nursing Documentation Reviewed: Yes - Infectious Disease Hx of Infectious Diseases: None - Cardiac Hx Hypertension: Yes Hx Pacemaker: Yes - Pulmonary Hx Asthma: Yes - Neurological Hx Neurological Disorder: No - HEENT Hx HEENT Disorder: No - Renal Hx Renal Disorder: No - Endocrine/Metabolic Hx Endocrine Disorders: No - Hematological/Oncological Hx Blood Disorders: No - Integumentary Hx Dermatological Disorder: No - Musculoskeletal/Rheumatological Hx Falls: No - Gastrointestinal Hx Gastrointestinal Disorders: No - Genitourinary/Gynecological Hx Genitourinary Disorders: No - Psychiatric Hx Psychophysiologic Disorder: No Hx Substance Use: No - Surgical History Hx Dilation and Curettage: Yes (x1 ectopic ) - Anesthesia Hx Anesthesia: Yes Hx Anesthesia Reactions: No Hx Malignant Hyperthermia: No - Suicidal Assessment Feels Threatened In Home Enviroment: No Family/Social History - Physician Review Nursing Documentation Reviewed: Yes Family/Social History: Unknown Family HX Smoking Status: Never Smoked Hx Alcohol Use: No Hx Substance Use: No Allergies/Home Meds Allergies/Adverse Reactions: Allergies No Known Allergies Allergy (Unverified 11/08/18 13:53) Home Medications: Home Meds Medication Instructions Recorded Confirmed Enalapril Maleate [Vasotec] 5 mg PO DAILY 09/24/14 09/28/14 Metoprolol Succinate XL [Toprol XL] 25 mg PO DAILY 09/24/14 09/28/14 Simvastatin [Zocor] 40 mg PO DAILY 09/24/14 09/28/14 Atorvastatin [Lipitor] 20 mg PO DAILY 07/21/18 07/24/18 Enalapril Maleate [Vasotec] 5 mg PO DAILY 07/21/18 07/21/18 Furosemide [Lasix] 20 mg PO QOTHERDAY 07/21/18 07/21/18 Oxybutynin [Ditropan Tab] 5 mg PO DAILY 07/21/18 07/24/18 hydrALAZINE [Apresoline] 25 mg PO QID 07/21/18 07/21/18 Review of Systems - Physician Review All systems were reviewed & negative as marked: Yes - Review of Systems Constitutional: Normal. absent: Fevers Eyes: Normal ENT: Normal Respiratory: SOB Cardiovascular: Normal. absent: Chest Pain Gastrointestinal: Normal Genitourinary Female: Normal Musculoskeletal: Normal Skin: Normal Neurological: Normal Endocrine: Normal Hemo/Lymphatic: Normal Psychiatric: Normal Physical Exam Vital Signs Reviewed: Yes Vital Signs Temp Pulse Resp BP Pulse Ox 11/08/18 13:39 97.8 F 87 18 120/95 H 96 Temperature: Afebrile Blood Pressure: Normal Pulse: Regular Respiratory Rate: Normal Appearance: Positive for: Well-Appearing, Non-Toxic, Comfortable Pain Distress: None Mental Status: Positive for: Alert and Oriented X 3 - Systems Exam Head: Present: Atraumatic, Normocephalic Pupils: Present: PERRL Extroacular Muscles: Present: EOMI Conjunctiva: Present: Normal Mouth: Present: Moist Mucous Membranes Neck: Present: Other (lateral neck tenderness). No: JVD Respiratory/Chest: Present: Tachypneic. No: Respiratory Distress, Accessory Muscle Use Cardiovascular: Present: Regular Rate and Rhythm, Normal S1, S2. No: Murmurs Abdomen: No: Tenderness, Distention, Peritoneal Signs Back: Present: Normal Inspection Upper Extremity: Present: Normal Inspection. No: Cyanosis, Edema, Swelling Lower Extremity: Present: Normal Inspection. No: Edema Neurological: Present: GCS=15, CN II-XII Intact, Speech Normal Skin: Present: Warm, Dry, Normal Color. No: Rashes Psychiatric: Present: Alert, Oriented x 3, Normal Insight, Normal Concentration Medical Decision Making ED Course and Treatment: 11/08/18 14:15 Impression: 73 year old F presents complaining of trouble breathing x3days Differential Diagnosis included but are not limited to: Asthma, less likely CHF Plan: -- Labs -- EKG -- CXR -- Duoneb 3mg -- Lasix -- Solu-Medrol -- Reassess and disposition Prior Visits: Notes and results from previous visits were reviewed. Progress Notes: 11/08/18 14:20 NSR @ 90 bpm, with biatrial enlargement 11/08/18 18:46 CXR reviewed and negative for CHF pattern. No acute infiltrate. Patient felt much better after 1 neb treatment and solumedrol. She does not want another treatment. Motrin and Flexeril given for her neck pain which is chronic. Daughter returned to pick her up and are aware that if any symptoms worsen to bring her back to the hospital. Patient agrees with the plan. - RAD Interpretation Radiology Orders: 11/08/18 14:22 CHEST PORTABLE [RAD] Stat - Medication Orders Current Medication Orders: Albuterol/Ipratropium (Duoneb 3 Mg/0.5 Mg (3 Ml) Ud) 3 ml IH STAT STA Stop: 11/08/18 14:23 Furosemide (Lasix) 40 mg IVP STAT STA Stop: 11/08/18 14:23 Methylprednisolone (Solu-Medrol) 125 mg IVP STAT STA Stop: 11/08/18 14:23 - Scribe Statement The provider has reviewed the documentation as recorded by the Lindy Wall All medical record entries made by the Scribe were at my direction and personally dictated by me. I have reviewed the chart and agree that the record accurately reflects my personal performance of the history, physical exam, medical decision making, and the department course for this patient. I have also personally directed, reviewed, and agree with the discharge instructions and disposition. Disposition/Present on Arrival - Present on Arrival Any Indicators Present on Arrival: No History of DVT/PE: No History of Uncontrolled Diabetes: No Urinary Catheter: No History of Decub. Ulcer: No History Surgical Site Infection Following: None - Disposition Have Diagnosis and Disposition been Completed?: Yes Diagnosis: Asthma attack, Neck strain Disposition: HOME/ ROUTINE Disposition Time: 17:26 Patient Plan: Discharge Condition: IMPROVED Discharge Instructions (ExitCare): Muscle Strain, Asthma in Adults Additional Instructions: HARLEY ANDRE, thank you for letting us take care of you today. Your provider was Sina Mcfarlane DO and you were treated for ASTHMA EXACERBATION, Neck Strain. The emergency medical care you received today was directed at your acute symptoms. If you were prescribed any medication, please fill it and take as directed. It may take several days for your symptoms to resolve. Return to the Emergency Department if your symptoms worsen, do not improve, or if you have any other problems. Please contact your doctor or call one of the physicians/clinics you have been referred to that are listed on the Patient Visit Information form that is included in your discharge packet. Bring any paperwork you were given at discharge with you along with any medications you are taking to your follow up visit. Our treatment cannot replace ongoing medical care by a primary care provider outside of the emergency department. Thank you for allowing the [facility] team to be part of your care today. If you had an X-Ray or CT scan: A Radiologist will review the ED reading if any change in treatment is needed we will contact you. If you had a blood, urine, or wound culture: It will take several days for the results, if any change in treatment is needed we will contact you. If you had an STI test: It will take 48 hours for the results. Please call after 1 week if you have not heard back. Prescriptions: Albuterol HFA [Ventolin HFA 90 mcg/actuation (8 g)] 2 puff IH Q4 #1 puff Ibuprofen [Motrin] 600 mg PO Q6 PRN #30 tab PRN Reason: Pain, Moderate (4-7) predniSONE [predniSONE Tab] 40 mg PO DAILY #8 tab Referrals: Sara Bennett MD [Primary Care Provider] - Follow up with primary Forms: [employer] ([place]izen [place])
[2018-11-08 15:08] LABS: BASO # 0.02 K/mm3 (0.0-2.0); BASO % 0.3 % (0.0-3.0); EOS # 0.3 (0.0-0.7); EOS % 4.2 % (1.5-5.0); HEMOGLOBIN 11.7 g/dL (12.0-16.0); LYMPH # 1.5 (1.2-3.4); LYMPH % 19.4 % (22.0-35.0); MEAN CELL VOLUME 99.7 fl (80.0-105.0); MEAN CORPUSCULAR HEMOGLOBIN 31.6 pg (25.0-35.0); MEAN CORPUSCULAR HGB CONC 31.7 g/dl (31.0-37.0); MEAN PLATELET VOLUME 10.7 fl (7.0-11.0); MONO # 0.4 (0.1-0.6); MONO % 5.2 % (1.0-6.0); RBC 3.7 10^6/uL (3.5-6.1); RED CELL DISTRIBUTION WIDTH 14.2 % (11.5-14.5); WHITE BLOOD COUNT 7.7 10^3/uL (4.5-11.0)
--- NOTE | 2018-11-08 15:24 | RAD ---
Date of service: 11/08/2018 HISTORY: shortness of breathe COMPARISON: 07/24/2018 TECHNIQUE: 1 view obtained. FINDINGS: LUNGS: No active pulmonary disease. PLEURA: No significant pleural effusion identified, no pneumothorax apparent. CARDIOVASCULAR: No aortic atherosclerotic calcification present. Normal cardiac size. No pulmonary vascular congestion. OSSEOUS STRUCTURES: No significant abnormalities. VISUALIZED UPPER ABDOMEN: Normal. OTHER FINDINGS: None. IMPRESSION: No active disease.
[2018-11-08 15:39] LABS: BLOOD UREA NITROGEN 22 mg/dL (7-21); CALCIUM 9.7 mg/dL (8.4-10.5); GFR NON-AFRICAN AMERICAN 40
[2018-11-08 15:51] LABS: B-TYPE NATRIURETIC PEPTIDE 96.4 pg/mL (0-450); TROPONIN I < 0.01 ng/mL
[2018-11-08 17:20] VITALS: BP 125/80; PULSE 82; O2SAT 98
--- NOTE | 2018-11-08 18:45 | CARD ---
APPROVED REPORT Date of service: 11/08/2018 EKG Measurement Heart [id number] <Conclusion> Normal sinus rhythm Biatrial enlargement Possible Inferior infarct, age undetermined Abnormal ECG
== END 2018-11-08 17:26 | disposition home or self-care (01) ==
LOC: ED 13:39 → UNDOADMOB 16:27 → ERH 16:27 → ED 17:26
DX: S16.1XXA Strain of muscle, fascia and tendon at neck level, initial encounter (principal); X58.XXXA Exposure to other specified factors, initial encounter; J45.909 Unspecified asthma, uncomplicated; I10 Essential (primary) hypertension; Z95.0 Presence of cardiac pacemaker
CPT/HCPCS: 71045; 80048; 82550; 83615; 83735; 83880; 84484; 85025; 87040; 93005; 96374; 96375; 99284; J1940; J2930